=== PATIENT | male | born 1990 | race Caucasian/White ===

== ENCOUNTER 2018-04-30 17:23 | Emergency (ER) | payer MEDICAID, OTHER ==
[2018-04-30] MEDS: KETOROLAC 60 MG INJ IM (20:29)
== END 2018-04-30 22:05 | disposition home or self-care (01) ==
LOC: FTE 17:23
DX: S49.92XA Unspecified injury of left shoulder and upper arm, initial encounter (principal); V49.40XA Driver injured in collision with unspecified motor vehicles in traffic accident, initial encounter
CPT/HCPCS: 73060; 96372; 99284-25